=== PATIENT | male | born 1995 | race Caucasian/White ===

== ENCOUNTER 2024-05-14 12:59 | Emergency (ER) | payer SELFPAY ==
[2024-05-14 13:05] VITALS: BP 140/95; PULSE 103; RESP 18; TEMP 98.3; BMI 37.3
== END 2024-05-14 14:17 | disposition home or self-care (01) ==
LOC: JERFT 12:59 → JER 12:59 → JERFT 14:17
DX: J40 Bronchitis, not specified as acute or chronic (principal); R50.9 Fever, unspecified; J02.9 Acute pharyngitis, unspecified; R05.9 Cough, unspecified; M79.10 Myalgia, unspecified site
CPT/HCPCS: 99283-25

== ENCOUNTER 2024-06-07 02:13 | Emergency (ER) | payer OTHER ==
[2024-06-07 02:18] VITALS: BP 118/78; PULSE 70; RESP 18; TEMP 98; BMI 34.4
[2024-06-07] MEDS ORDERED: ERYTHROMYCIN 0.5% OPHTHALMIC OINTMENT 3.5 GM TUBE ONE (03:02)
[2024-06-07] MEDS ORDERED: GABAPENTIN 300 MG CAPSULE PO ONE (03:17)
== END 2024-06-07 03:10 | disposition home or self-care (01) ==
LOC: JER 02:13
DX: H11.422 Conjunctival edema, left eye (principal)
CPT/HCPCS: 99283-25